=== PATIENT | male | born 1950 | race Caucasian/White ===

== ENCOUNTER 2016-12-10 08:30 | Inpatient (IN) ==
[2016-12-06 16:25] LABS: Basophils # (Auto) 0.1 K/mcL (0.0-0.3); Basophils % (Auto) 0.5 % (0.0-2.0); Eosinophils # (Auto) 0.3 K/mcL (0.0-0.7); Eosinophils % (Auto) 3.3 % (0.0-7.0); Granulocytes % (Auto) 56.3 % (38.0-78.0); Lymphocytes % (Auto) 30.5 % (15.5-49.0); Mean Cell Volume 95.5 fL (80.0-100.0); Mean Corpuscular HGB Conc 33.6 g/dL (31.0-36.0); Mean Corpuscular Hemoglobin 32.1 pg (26.0-34.0); Monocytes # (Auto) 0.9 K/mcL (0.1-0.9); Monocytes % (Auto) 9.4 % (1.0-9.0); Platelet Count 270 K/mcL (140-440); RBC 4.54 M/mcL (4.50-5.90); Red Cell Distribution Width 13.2 % (11.5-14.5)
[2016-12-06 16:42] LABS: Appearance,Urine CLEAR; Bilirubin,Urine NEG (NEG); Color,Urine YELLOW; Glucose,Urine (UA) NEGATIVE (NEG); Leukocyte Esterase,Urine NEG /uL (NEG); Nitrate,Urine NEG (NEG); Protein,Urine NEG (NEG); Specific Gravity,Urine 1.015 (1.000-1.035); Urine Blood NEG mg/dL (<0.03); Urobilinogen,Urine NEG (NEG)
[2016-12-06 16:57] LABS: Blood Urea Nitrogen 13 mg/dl (8-23)
[~2016-12-10 08:30] MED LIST: ACETAMINOPHEN 500 MG TABLET PO SCH; CELECOXIB 200 MG CAPSULE PO SCH; PREGABALIN 150 MG CAPSULE PO SCH; ceFAZolin 1 GM VIAL IV SCH; oxyCODONE 10 MG TAB.ER.12H PO SCH
[2016-12-10] MEDS ORDERED: DEXAMETHASONE 10 MG/ML VIAL IV ONE (10:55)
[2016-12-10] MEDS ORDERED: fentaNYL 250 MCG/5 ML VIAL IV ONE (10:55)
[2016-12-10] MEDS ORDERED: MIDAZOLAM 5 MG/5 ML VIAL IV ONE (10:55)
[2016-12-10] MEDS ORDERED: SUCCINYLCHOLINE 20 MG/ML ML IV ONE (10:55)
[2016-12-10] MEDS ORDERED: ROPIVACAINE HCL/PF 30 ML VIAL IJ ONE (10:55)
[2016-12-10] MEDS ORDERED: TRANEXAMIC ACID 1,000 MG/10 ML VIAL IV ONE ×2 (10:55→12:17)
[2016-12-10] MEDS ORDERED: PROPOFOL 200 MG/20 ML VIAL IV ONE (10:55)
[2016-12-10] MEDS ORDERED: LIDOCAINE HCL/PF 100 MG/5 ML SYRINGE IV ONE (10:55)
[2016-12-10] MEDS ORDERED: ONDANSETRON 4 MG/2 ML VIAL IV ONE (10:55)
[2016-12-10] MEDS ORDERED: GENTAMICIN SULFATE 800 MG/20 ML VIAL IR ONE (11:23)
[2016-12-10] MEDS ORDERED: ONDANSETRON 4 MG/2 ML VIAL IV PRN ×2 (12:03→12:17)
[2016-12-10] MEDS ORDERED: MEPERIDINE 25 MG/ML SYRINGE IV PRN (12:03)
[2016-12-10] MEDS ORDERED: IPRATROPIUM/ALBUTEROL 3 ML AMPUL.NEB NEB PRN (12:03)
[2016-12-10] MEDS ORDERED: LACTATED RINGERS 250 ML IV PRN (12:03)
[2016-12-10] MEDS ORDERED: NALOXONE HCL 0.4 MG/ML VIAL IV PRN (12:03)
[2016-12-10] MEDS ORDERED: FLUMAZENIL 0.1 MG/ML ML IV PRN (12:03)
[2016-12-10] MEDS ORDERED: diphenhydrAMINE 50 MG/ML VIAL IV PRN (12:03)
[2016-12-10] MEDS ORDERED: METHOCARBAMOL 1,000 MG/10 ML VIAL IV PRN (12:03)
[2016-12-10] MEDS ORDERED: BENZOCAINE/MENTHOL 1 LOZENGE PO PRN ×2 (12:03→12:17)
[2016-12-10] MEDS ORDERED: PROMETHAZINE 25 MG/ML VIAL IV PRN (12:03)
[2016-12-10] MEDS ORDERED: LACTATED RINGERS 1,000 ML IV SCH (12:15)
[2016-12-10] MEDS ORDERED: MAGNESIUM HYDROXIDE 30 ML ORAL.SUSP PO PRN (12:17)
[2016-12-10] MEDS ORDERED: BISACODYL 10 MG SUPP.RECT PR PRN (12:17)
[2016-12-10] MEDS ORDERED: TEMAZEPAM 15 MG CAPSULE PO PRN (12:17)
[2016-12-10] MEDS ORDERED: POLYETHYLENE GLYCOL 3350 17 GM PACKET PO PRN (12:17)
[2016-12-10] MEDS ORDERED: ACETAMINOPHEN 325 MG TABLET PO PRN (12:17)
[2016-12-10] MEDS ORDERED: FLEETS ADULT ENEMA PR PRN (12:17)
[2016-12-10] MEDS ORDERED: HYDROcodone/APAP 10/325MG TABLET PO PRN (12:21)
[2016-12-10] MEDS: fentaNYL 100 MCG/2 ML VIAL IV PRN ×8 (12:40→13:14)
[2016-12-10] MEDS: HYDROmorphone 2 MG/ML SYRINGE IV PRN ×6 (13:15→19:29)
[2016-12-10] MEDS ORDERED: ACETAMINOPHEN 1,000 MG/100 ML BOTTLE IV ONE (13:31)
--- NOTE | 2016-12-10 14:03 | XRay Report ---
CLINICAL INFORMATION: Status post right shoulder arthroplasty TECHNIQUE: Portable AP and Y views of the right shoulder COMPARISON: None. FINDINGS: Status post right total shoulder arthroplasty. Alignment on these portable views is anatomic. IMPRESSION: Right shoulder arthroplasty. Interpreted and Authenticated by: Magen Fuentes 12/10/16
--- NOTE | 2016-12-10 14:32 | Operative Note ---
DATE OF OPERATION: 12/10/2016 PREOPERATIVE DIAGNOSES: 1. Right shoulder rotator cuff arthropathy. 2. Carpal tunnel syndrome on the right hand. POSTOPERATIVE DIAGNOSES: 1. Right shoulder rotator cuff arthropathy. 2. Carpal tunnel syndrome on the right hand. PROCEDURE: 1. Right reverse total shoulder with biceps tenodesis. 2. Right carpal tunnel release. SURGEON: Eligio Arreola MD. DIET CLERK: Reginald Rioc PA-C. ANESTHESIA: General LMA anesthesia. COMPLICATIONS: None. ESTIMATED BLOOD LOSS: About 60 mL. BLOOD PRODUCTS GIVEN: Tranexamic acid and preop antibiotics were given prior to the incision. Ioban was used to cover all the skin surfaces and isolate this from the operative field. DESCRIPTION OF PROCEDURE: The patient was brought to the operating room and put to sleep with general LMA anesthesia. Once asleep, the patient had the right arm sterilely prepped and draped in the usual sterile fashion. Once we confirmed this as the operative site, preop antibiotics and tranexamic acid were given. We made a deltopectoral interval incision. This saber-type incision was used to retract the cephalic vein and the deltoid laterally. Once this was done, we then placed a conjoint tendon retractor and released the capsule at the subscapularis attachment point. This was tagged and retracted medially. The biceps tendon was released and tagged and sutured into the pectoralis major with #2 Ethibond. Once done, we irrigated thoroughly and released the remnants of the biceps tendon intraarticularly. We dislocated the humeral head, and inferior capsular release around the inferior neck of the humerus was performed. We made our neck cut at the anatomical neck region using 30 degrees of retroversion. Once the ball was removed, we irrigated thoroughly and placed a plate on the humeral head, and this was dislocated posteriorly. Once done, we irrigated and performed a 360 degree capsulotomy around the glenoid. Once exposed, we then placed the pin centrally at 10 degrees of inclination and reamed up for the size 40 spherical arthroplasty and metaglene. The metaglene was then put into place after reaming and using the window wiper to remove any spurs around the edge. We then placed a 40 mm central screw and three additional screws, 28, 24 and 36. These all had good purchase. We irrigated thoroughly and then placed a 40 mm glenosphere on the metaglene with 2 mm of eccentricity and 2 mm of offset. Once this was done, we irrigated thoroughly. We then prepared the humeral side. This was broached up to the size 13 humeral stem. We did have to cut twice after we countersunk and made this so it was reducible fairly easily. We irrigated thoroughly and then implanted a size 13 stem with a standard thickness poly. Once done, the shoulder was reduced and took it through the full range of motion, abduction and external rotation at 90 degrees was achieved, external rotation to about 80 to 90 degrees, and internal rotation to 60 degrees. Shoulder had full range of motion without any signs of impingement. We irrigated, closed the capsule anteriorly with #2 Ethibond, closed the interval with 0 Vicryl, and closed the skin with 2-0 Vicryl and [place] superficially. The carpal tunnel was then performed. Once we then released the carpal tunnel, we made an incision through the drape, exposed the inner thenar region. We made an incision through the inner thenar region about 2 cm in length, identified the transverse carpal ligament and prepalmar fascia. Once these were released and using a 15 blade to incise through the transverse carpal ligament, a dental freer was placed into the tunnel, and this dissection was carried distal using small tenotomy scissors. I then released the retinaculum proximally using a dental freer inside the carpal tunnel, as well as a Angel retractor under the skin. This was released proximally. We irrigated thoroughly and then closed the skin with 4-0 nylon. A sterile bandage was applied with an ABD dressing. The patient tolerated this well. There was no complication. NOHEMI:nabil Job ID: [id number] Doc ID: [id number] Eligio Arreola MD
[2016-12-10] MEDS: KETOROLAC 15 MG/ML VIAL IV PRN (14:36)
[2016-12-10] MEDS: 0.45 % SODIUM CHLORIDE 1,000 ML IV SCH ×2 (14:41→20:38)
[2016-12-10] MEDS: 0.9 % SODIUM CHLORIDE 10 ML SYRINGE IV SCH ×2 (14:41→22:44)
[2016-12-10] MEDS: HYDROcodone/APAP 10/325MG TABLET PO PRN ×2 (16:12→21:43)
--- NOTE | 2016-12-10 16:16 | Brief Operative Note ---
Date of procedure: 12/10/16 Pre-op diagnosis: right shoulder djd with rct and right carpal tunnel syndrome Post-op diagnosis: same Procedure: right reverse tsa with bicep lysis and right ctr Grafts/Implants: Yes Anesthesia: GETA Complications: none Complications Description: 12/10/16 16:15 none Surgeon: Eligio Arreola Bumper Operator: Reginald Rico Estimated blood loss (cc): 30 Specimens Removed/Pathology: none sent Condition: stable Disposition: PACU
[2016-12-10] MEDS ORDERED: NAPROXEN 250 MG TABLET PO PRN (17:30)
[2016-12-10] MEDS: ceFAZolin 1 GM VIAL IV SCH (19:06)
[2016-12-10] MEDS: DOCUSATE SODIUM 100 MG CAPSULE PO SCH (20:38)
[2016-12-10] MEDS: oxyCODONE 10 MG TAB.ER.12H PO SCH (20:39)
[2016-12-10] MEDS ORDERED: SENNOSIDES 1 TABLET PO SCH (21:00)
[2016-12-10] MEDS ORDERED: ATORVASTATIN 20 MG TABLET PO SCH (21:00)
[2016-12-11] MEDS: 0.45 % SODIUM CHLORIDE 1,000 ML IV SCH (02:00)
[2016-12-11] MEDS: HYDROcodone/APAP 10/325MG TABLET PO PRN ×3 (03:15→11:21)
[2016-12-11] MEDS: ceFAZolin 1 GM VIAL IV SCH (03:16)
[2016-12-11] MEDS: 0.9 % SODIUM CHLORIDE 10 ML SYRINGE IV SCH (05:24)
[2016-12-11] MEDS: KETOROLAC 15 MG/ML VIAL IV PRN (07:12)
--- NOTE | 2016-12-11 07:42 | Orthopedic Progress Note ---
Subjective Patient information: Note initiated : 12/11/16 at 7:41 am Service Date, if different from initiated Date: [] Patient: Colby Monteiro 65 y/o M admitted on 12/10/16 for Right Reverse Total Shoulder Arthroplasty with . Chief Complaint: [Pt is stable this morning on post operative day 1 without any significant concerns or complaints. Patients vital signs have remained stable. Patients dressing is dry and exhibits a grossly intact neurovascular and neuromotor exam. Patients 10 point ROS is otherwise negative. ] Objective Vital signs: Vital Signs Temp Pulse Resp BP BP Pulse Ox 12/11/16 03:33 97.5 F L 75 12 125/75 91 12/11/16 00:00 98.5 F 72 12 97/65 92 12/10/16 20:00 97.4 F L 86 12 122/75 94 12/10/16 19:45 94 12/10/16 19:44 94 12/10/16 17:15 79 133/84 96 12/10/16 16:15 70 126/77 96 12/10/16 15:45 70 129/81 96 12/10/16 15:15 73 123/83 94 12/10/16 14:45 69 154/83 94 12/10/16 14:30 70 145/78 94 12/10/16 14:00 97.8 F 72 14 148/90 94 12/10/16 13:45 97.8 F 73 19 140/87 92 12/10/16 13:30 72 16 148/94 94 12/10/16 13:15 71 20 157/102 95 12/10/16 13:00 72 20 172/96 92 12/10/16 12:45 71 18 156/88 98 12/10/16 12:34 97.3 F L 72 16 129/75 98 12/10/16 10:31 98.1 F 67 16 145/78 94 Intake and Output 12/10/16 12/11/16 12/11/16 21:59 05:59 13:59 Intake Total 720 / 720 1500 / 1500 Output Total 450 / 450 2200 / 2200 Balance 270 / 270 -700 / -700 Intake: IV 1000 / 1000 Sodium Chloride 0.45% 1, 1000 / 1000 000 ml @ 125 mls/hr IV . Q8H [facility] Rx#:[id number] Oral 720 / 720 500 / 500 Output: Void Amount 450 / 450 2200 / 2200 Other: Meal Dinner [place], fruit cup Percent of Meal Consumed 100% 100% Feeding Ability Independent # Voids 1 Weight 285 lb 11.2 oz Intake & Output: Intake & Output 12/10/16 12/11/16 12/11/16 21:59 05:59 13:59 Intake Total 720 / 720 1500 / 1500 Output Total 450 / 450 2200 / 2200 Balance 270 / 270 -700 / -700 Weight 285 lb 11.2 oz Intake: IV 1000 / 1000 Sodium Chloride 0.45% 1, 1000 / 1000 000 ml @ 125 mls/hr IV . Q8H [facility] Rx#:[id number] Oral 720 / 720 500 / 500 Output: Void Amount 450 / 450 2200 / 2200 Other: Meal Dinner [place], fruit cup Percent of Meal Consumed 100% 100% Feeding Ability Independent # Voids 1 Incision: Yes healing Incision clean and dry: Yes Dressing: Yes clean, Yes dry Weight bearing status: full Neurological exam IM: Yes motor sensory intact, Yes neurovascular intact Extremities exam IM: Yes neurovascular intact - Labs CBC & BMP: 12/06/16 14:21 12/06/16 14:21 Labs: 12/06/16 14:21 Hgb 14.6 Hct 43.3 Assessment and Plan (1) Hx of total shoulder replacement Patient has been educated regarding wound care and dressings, follow up recommendations, and medication use. We will f/u with the patient within 2-3 weeks for wound check. Status: Acute
--- NOTE | 2016-12-11 07:45 | Discharge Summary ---
Ortho Discharge - TSA - Patient Instructions Diet: Regular Diet Activity: activity as tolerated, weight bearing as tolerated Total Shoulder Protocol: Leave immobilizer in place except for bathing and ROM. Abduction pillow. Continue to wear sling until seen by physician. Codman Pendulum : These exercises use momentum produced by your body to move your shoulder joint. Bend your knees and shift your weight to your front leg, then back, allowing your arm to swing in the same directions. Using the same technique, alternately shift your weight between your right and left legs, allowing your arm to swing from side to side. These exercises are also performed in counterclockwise and clockwise circular motions. Typically these exercises are performed several times per day, for a set number repetitions or minutes, such as 20 times in a row or 5 minutes at a time. Dressing Care: May shower in 2 days - Problem Maintenance (1) Hx of total shoulder replacement Status: Acute - Follow Up Plan Follow Up Appointments: Eligio Arreola MD [Physician] - 12/25/16 1:00 pm Disposition: Home, Self-Care Prognosis: Good Rehab Potential: Good I certify that the patient requires SNF services: No Overall status at discharge: patient is progressing back to baseline - Orders For Discharge Prescriptions: Docusate Sodium [Colace] 100 mg PO BID #60 capsule HYDROcodone/APAP 10/325MG [Bigler 10/325Mg] 1 - 2 tab PO Q4HP PRN #75 tablet PRN Reason: Pain oxyCODONE [Oxycontin] 10 mg PO BID #30 tab.er.[id number]
[2016-12-11] MEDS ORDERED: MULTIVIT,THER IRON,CA,FA & MIN 1 TABLET PO SCH (09:00)
[2016-12-11] MEDS ORDERED: VITAMIN B COMPLEX 1 CAPSULE PO SCH (09:00)
[2016-12-11] MEDS ORDERED: ASPIRIN 81 MG TAB.CHEW PO SCH (09:00)
[2016-12-11] MEDS ORDERED: LISINOPRIL 20 MG TABLET PO SCH (09:00)
[2016-12-11] MEDS ORDERED: VITAMIN D3 1,000 UNIT TABLET PO SCH (09:00)
[2016-12-11] MEDS: oxyCODONE 10 MG TAB.ER.12H PO SCH (09:39)
[2016-12-11] MEDS: DOCUSATE SODIUM 100 MG CAPSULE PO SCH (09:39)
== END 2016-12-11 11:45 | disposition home or self-care (01) | DRG 483 ==
LOC: MEDSUR 08:30
PROVIDERS: ADMIT Orthopaedic Surgery; ATTEND Orthopaedic Surgery